=== PATIENT | female | born 1965 | race Caucasian/White ===

== ENCOUNTER 2019-05-01 13:09 | Observation (INO) | payer BC, OTHER, SELFPAY ==
[~2019-05-01] VITALS: Ht 157.5 cm; Wt 56.0 kg
[2019-05-02 14:18] VITALS: BP 124/77
== END 2019-05-02 16:48 | disposition home or self-care (01) ==
LOC: ED 15:07 → EDIP 15:23 → INTOOBSV 15:23 → 5SO 16:13
PROVIDERS: ADMIT Hospitalist; ATTEND Hospitalist
DX: R42 Dizziness and giddiness (principal); R07.89 Other chest pain; E16.2 Hypoglycemia, unspecified
CPT/HCPCS: 36415; 70450; 71046; 80048; 80053; 81001; 82040; 82533; 82962; 84484; 85025; 85379; 87086; 93005; 93306; 93880; 96360; 96361; 96372; 99284; G0378; J1650; J7030